=== PATIENT | female | born 1960 | race Asian ===

== ENCOUNTER 2019-05-22 18:23 | Emergency (ER) | payer BC, OTHER ==
[~2019-05-22] VITALS: Ht 157.5 cm; Wt 65.8 kg
[2019-05-22 18:46] VITALS: BP 138/81
== END 2019-05-22 22:45 | disposition left against medical advice (07) ==
LOC: EDBD 18:23 → ER 18:29
DX: E16.2 Hypoglycemia, unspecified (principal); Z53.21 Procedure and treatment not carried out due to patient leaving prior to being seen by health care provider